=== PATIENT | female | born 1980 | race African-American/Black ===

== ENCOUNTER 2024-07-08 21:29 | Emergency (ER) | payer OTHER, MEDICAID ==
[~2024-07-08] VITALS: Ht 162.6 cm; Wt 99.8 kg
[2024-07-08] MEDS ORDERED: ZOLP10TA2 PO (21:52)
[2024-07-08] MEDS ORDERED: CYCL5TAB PO (21:52)
[2024-07-08] MEDS ORDERED: ONDA4TAB5 PO (21:52)
[2024-07-08] MEDS ORDERED: MIRT-121 PO (21:52)
[2024-07-08] MEDS ORDERED: DIAZ10TA PO (21:52)
[2024-07-08] MEDS ORDERED: DRON10CA5 PO (21:52)
[2024-07-08] MEDS ORDERED: DIPH25CA83 PO (21:52)
[2024-07-08] MEDS ORDERED: HYDR8TAB2 PO (21:52)
[2024-07-08] MEDS ORDERED: SUMA100T PO (21:52)
[2024-07-08 22:22] LABS: *URINE HCG, QUAL NEGATIVE (NEGATIVE)
[2024-07-08 22:33] LABS: *AMPHETAMINE, URINE NEGATIVE (NEGATIVE); *BARBITURATE, URINE NEGATIVE (NEGATIVE); *BENZODIAZEPINE, URINE POSITIVE (NEGATIVE); *CANNABINOID, URINE NEGATIVE (NEGATIVE); *COCCAINE, URINE NEGATIVE (NEGATIVE); *OPIATE, URINE NEGATIVE (NEGATIVE); *PHENCYCLIDINE SCREEN,URINE NEGATIVE (NEGATIVE); FENTANYL, URINE NEGATIVE (NEGATIVE)
[2024-07-09 01:24] VITALS: BP 145/79; TEMP 97.7; O2SAT 98
== END 2024-07-09 01:22 | disposition home or self-care (01) ==
LOC: ER 21:33
DX: S52.041A Displaced fracture of coronoid process of right ulna, initial encounter for closed fracture (principal); R10.2 Pelvic and perineal pain; Z79.891 Long term (current) use of opiate analgesic; Z79.899 Other long term (current) drug therapy; Z88.2 Allergy status to sulfonamides; Z88.5 Allergy status to narcotic agent; Z88.1 Allergy status to other antibiotic agents; X58.XXXA Exposure to other specified factors, initial encounter; Y93.89 Activity, other specified; Y92.89 Other specified places as the place of occurrence of the external cause; Y99.8 Other external cause status
CPT/HCPCS: 73200; 84703; A4606; A4663